=== PATIENT | female | born 1990 | race Caucasian/White ===

== ENCOUNTER 2024-03-24 14:51 | Emergency (ER) | payer BC, SELFPAY ==
[2024-03-24 14:59] VITALS: BP 138/80; PULSE 101; RESP 16; TEMP 37; O2SAT 100
--- NOTE | 2024-03-24 15:03 | ED.URI ---
HPI - URI/Sore Throat General Chief Complaint: Upper Respiratory Infection Stated Complaint: poss sinus infection/chest congestion Time Seen by Provider: 03/24/24 15:12 Source: patient and RN notes reviewed Mode of arrival: ambulatory Limitations: no limitations History of Present Illness HPI Narrative: 33-year-old female presents with concern for sinus pain, pressure, congestion, chest congestion. She reports she has some allergy symptoms starting about 2 weeks ago, on Wednesday she had worsening symptoms with sinus congestion, sinus pain. Reports her doctor prescribed her Z-Jamshid over the phone which he feels like is not helping her. She denies fever. MD elicited complaint: cough and nasal congestion Related Data Home Medications Medication Instructions Recorded Confirmed ascorbic acid (vitamin C) 250 mg See Rx Instructions .Route .COMPLEX 03/24/24 03/24/24 chewable tablet azithromycin 250 mg tablet See Rx Instructions .Route .COMPLEX 03/24/24 03/24/24 bupropion HCl 150 mg 24 hr tablet, 150 mg PO DAILY 03/24/24 03/24/24 extended release cetirizine 10 mg tablet (Zyrtec) 10 mg PO DAILY 03/24/24 03/24/24 cholecalciferol (vitamin D3) 10 10 mcg PO DAILY 03/24/24 03/24/24 mcg (400 unit) chewable tablet drospirenone 3 mg-ethinyl See Rx Instructions .Route .COMPLEX 03/24/24 03/24/24 estradiol 0.02 mg tablet (Loryna (28)) famotidine 10 mg tablet 10 mg PO DAILY 03/24/24 03/24/24 levocetirizine 5 mg tablet (Xyzal) 5 mg PO DAILY 03/24/24 03/24/24 multivit with minerals-iron 18 1 tablet PO DAILY 03/24/24 03/24/24 mg-folic ac 400 mcg-vit K 25 mcg tablet (Adults Multivitamin) omeprazole 10 mg capsule,delayed 10 mg PO DAILY 03/24/24 03/24/24 release sertraline 100 mg tablet See Rx Instructions .Route .COMPLEX 03/24/24 03/24/24 Allergies Allergy/AdvReac Type Severity Reaction Status Date / Time amoxicillin Allergy Rash Verified 03/24/24 15:09 Review of Systems Review of Systems: CONSTITUTIONAL: Denies malaise, chills, sweats, or fever. EYES: Denies visual changes, redness, or discharge. ENT: Reports rhinorrhea, congestion, sinus pain CARDIOVASCULAR: Denies chest pain, palpitations, or edema. RESPIRATORY: Reports cough and chest congestion. Denies dyspnea. GASTROINTESTINAL: Denies abdominal pain, nausea, vomiting, diarrhea SKIN: Denies rash or itching. MUSCULOSKELETAL: Denies myalgia. NEUROLOGIC: Denies headache. All systems reviewed & are unremarkable except as noted in HPI and below PMFSH Comments At time of signature, agree with nursing past medical, surgical, social and family history. There is no relevant family history pertinent to the presenting complaint Exam Narrative: GENERAL: Well-appearing, well-nourished, and in no acute distress. HEAD: Normocephalic EYES: PERRLA, conjunctivae clear ENT: Nares clear, turbinates edematous and erythematous. Mucous membranes moist. TM pearly worrell with dull light reflex bilaterally; no tragal tenderness. Oropharynx not erythematous without lesions. Tonsils not enlarged and without exudate, no drooling, no hoarseness, no trismus, uvula midline. NECK: Supple. No lymphadenopathy CHEST: Clear to auscultation, breath sounds equal. No wheezing, rhonchi, rales, or stridor. No respiratory distress, speaks in full sentences. HEART: Regular rate and rhythm. No murmur heard. SKIN: Warm, dry, no rash. NEURO: Alert and oriented x3. PSYCH: Normal mood and affect Course Course Emergency Course: Patient is aware of diagnosis, understands and agrees to treatment plan. Anticipatory guidance given. Patient agrees to follow-up as directed and is aware of reasons to seek care at the emergency department. Portions of this record may have been created with voice recognition software Level of Care: Express Care Visit Vital Signs Vital signs: Vital Signs Temperature 98.6 F 03/24/24 14:59 Pulse Rate 101 H 03/24/24 14:59 Respiratory Rate 16 03/24/24 14:59 Blood Pres
== END 2024-03-24 15:25 | disposition home or self-care (01) ==
PROVIDERS: Emergency Provider Nurse Practitioner
DX: J32.9 Chronic sinusitis, unspecified (principal); K21.9 Gastro-esophageal reflux disease without esophagitis; F41.9 Anxiety disorder, unspecified; F32.A Depression, unspecified
CPT/HCPCS: 99203; G0463